=== PATIENT | male | born 1975 | race Caucasian/White ===

== ENCOUNTER 2020-03-22 12:17 | Emergency (ER) | payer SELFPAY ==
[~2020-03-22] VITALS: Ht 172.7 cm; Wt 71.7 kg
--- NOTE | 2020-03-22 12:18 | NUR ---
EFRAÍN ALS TAKEN TO BED 5
[2020-03-22] MEDS ORDERED: LORazepam 2 MG/ML VIAL ONE (12:20)
[2020-03-22] MEDS ORDERED: LORazepam 2 MG/ML VIAL IM ONE (12:20)
[2020-03-22] MEDS ORDERED: diphenhydrAMINE 50 MG/ML VIAL ONE (12:20)
[2020-03-22] MEDS ORDERED: diphenhydrAMINE 50 MG/ML VIAL IM ONE (12:20)
[2020-03-22] MEDS ORDERED: HALOPERIDOL IM 5 MG/ML VIAL IM ONE (12:20)
--- NOTE | 2020-03-22 12:20 | NUR ---
PT IS SHOUTING, YELLING, THRASHING IN GURNEY, SCREAMING "[employer]SE!" PT CONTINUOUSLY SHOUTING, SCREAMING "ROHIT! DADDY POKER!" OVER AND OVER. PT IS DIAPHORETIC, NO SHIRT ON, VIVIANE PANTS AND SHOES ON. PT UNCONTROLLABLE, IN 4 POINT RESTRAINTS AT THIS TIME. PT ARRIVED FROM EMS IN 4 POINT RESTRAINTS. OFFICER ANNI FROM [facility] ARRIVED TO ED PLACING PATIENT ON 5150 HOLD.
--- NOTE | 2020-03-22 12:35 | NUR ---
PT FOUND BY MARCELA JONAS LYING ON THE STREET S/P INDUCING METH AND BEING VERBALLY AND BEHAVIORLY AGGRESSIVE. PD PUT HIM ON 5150 HOLD DUE TO DANGER TO SELF AND OTHERS. PT PRESENTS WITH SEVERE DIAPHORESIS AND BEING VERBALLY AND BEHAVIORLY AGGRESSIVE AND COMBATIVE, VSS, BUT TACHYCARDIA.
[2020-03-22] MEDS ORDERED: NACL 0.9% 1,000 ML IV ONE (13:10)
[2020-03-22 13:26] LABS: BASOPHILS % (AUTO) 0.4 % (0.0-2.0); EOSINOPHILS # (AUTO) 0.1 K/uL (0-0.4); EOSINOPHILS % (AUTO) 0.6 % (0.0-4.0); HEMATOCRIT 44.2 % (36-52); HEMOGLOBIN 15.4 g/dL (12.0-18.0); LYMPHOCYTES # (AUTO) 0.9 K/uL (2.0-11.5); LYMPHOCYTES % (AUTO) 9.2 % (20.5-51.1); MEAN CORPUSCULAR HEMOGLOBIN 31 pg (27-31); MEAN CORPUSCULAR HGB CONC 35 g/dL (33-37); MEAN CORPUSCULAR VOLUME 90.4 fL (80-94); MONOCYTES # (AUTO) 0.5 K/uL (0.8-1.0); MONOCYTES % (AUTO) 5.3 % (1.7-9.3); NEUTROPHILS # (AUTO) 7.9 K/uL (1.8-7.7); NEUTROPHILS % (AUTO) 84.5 % (42.2-75.2); PLATELET COUNT (AUTO) 302 K/uL (140-450); RED BLOOD CELL COUNT(AUTO) 4.89 MIL/uL (4.20-6.10); RED CELL DISTRIBUTION WIDTH 13.6 % (11.6-13.7); WHITE BLOOD COUNT (AUTO) 9.3 K/uL (4.8-10.8)
[2020-03-22 13:45] LABS: BILIRUBIN,URINE 1+ (NEGATIVE); BLOOD, URINE 3+ (NEGATIVE); COLOR,URINE YELLOW (YELLOW); LEUKOCYTE ESTERASE ,URINE NEGATIVE (NEGATIVE); NITRITE, URINE NEGATIVE (NEGATIVE); UGLUCOSE NEGATIVE (NEGATIVE)
[2020-03-22 13:46] LABS: ALBUMIN 4.5 g/dL (3.4-5.0); ASPARTATE AMINOTRANSFERASE 21 U/L (15-37); CARBON DIOXIDE 15.4 mmol/L (21-32); CHLORIDE 104 mmol/L (98-107); CREATININE 1.8 mg/dL (0.6-1.3); GFR ARICAN-AMERICAN 53 mL/min (>90); GLUCOSE 97 mg/dL (74-106); POTASSIUM 3.4 mmol/L (3.5-5.1); SODIUM SERUM 143 mmol/L (136-145); TOTAL BILIRUBIN 0.6 mg/dL (0.0-1.0); UREA NITROGEN, BLOOD 10 mg/dL (7-18)
[2020-03-22 13:48] LABS: APPEARANCE,URINE SLIGHTLY HAZY (CLEAR)
[2020-03-22 13:51] LABS: RBC,URINE 11-20 (MOD) /HPF (0-5); WBC,URINE 0-5 /HPF (0-5)
[2020-03-22 13:54] LABS: URINE AMORPHOUS URATE 1+ /HPF (None Seen)
--- NOTE | 2020-03-22 13:57 | NUR ---
BILATERAL LOWER LEG RESTRAINTS REMOVED. PT TOLERATED WELL. ATTEMPTED TO REMOVE BILATERAL WRISTS RESTRAINTS AND PATIENT TRYING TO SWING ARMS, BEGINS YELLING AND TRYING TO GET OUT OF BED. BILATERAL WRIST RESTRAINTS LEFT IN PLACE AT THIS TIME. DR. HOLMAN AWARE.
[2020-03-22 14:00] LABS: ACETAMINOPHEN < 0.5 ug/ml (10-30); SALICYLATE < 2.8 mg/dL (2.8-20.0)
[2020-03-22 14:02] LABS: BARBITURATE, URINE NEG ng/ml (NEG <=200); BENZODIAZEPINE, URINE NEG ng/mL (NEG <=200); CANNABINOID, URINE NEG ng/mL (NEG <=50); COCAINE, URINE NEG ng/mL (NEG <=300); OPIATE, URINE NEG ng/mL (NEG <=2000); PHENCYCLIDINE SCREEN,URINE NEG ng/mL (NEG <=25)
--- NOTE | 2020-03-22 14:20 | NUR ---
RIGHT ARM RESTRAINTS REMOVED. PT IS SLEEPING QUITELY IN THE BED ON SUPINE POSITION, SKIN IS INTACT ON THE RESTRAINTED AREAS. IV ON RT AC IS IN PLACE. VSS. 1:1 SITTER IS AT BEDSIDE.
--- NOTE | 2020-03-22 14:20 | NUR ---
Note kayla in EDM - 03/22/20 at 1514 by BIB BILATERAL LOWER LEG RESTRAINTS REMOVED. PT IS SLEEPING QUITELY IN THE BED ON SUPINE POSITION, SKIN IS INTACT ON THE RESTRAINTED AREAS. IV ON RT AC IS IN PLACE. VSS. I:1 SITTER IS AT BEDSIDE.
--- NOTE | 2020-03-22 15:05 | NUR ---
ALL RESTRAINTS REMOVED. PT IS SLEEPING, QUIET. DR. HOLMAN AWARE.
[2020-03-22] MEDS ORDERED: OLANZapine 5 MG ODT SL ONE (17:25)
--- NOTE | 2020-03-22 17:45 | NUR ---
DINNER PROVIDED TO PT. PT IS EATING IN THE BED. PT IS CALM AND ABLE TO FOLLOW COMMANDS AT THIS TIME. PT STILL KEEPS SAYING :"[employer] HOUSE."
--- NOTE | 2020-03-22 18:24 | NUR ---
PT IS ON HOSPITAL GOWN/SOCKS AND SLEEPING QUITELY IN THE BED. VSS SHOWED ON THE MONITOR. WILL CONTINUE MONITORING PT'S VITAL SIGNS.
--- NOTE | 2020-03-22 19:11 | NUR ---
REPORT GAVE TO PT. TX OF CARE AT THIS TIME.
--- NOTE | 2020-03-22 19:12 | NUR ---
PT SLEEPING AT THIS TIME, REMAINS ON BEDSIDE MONITOR, VS WNL
--- NOTE | 2020-03-22 19:12 | NUR ---
RECEIVED REPORT LAURE GORDON RN.
--- NOTE | 2020-03-22 21:26 | NUR ---
PT REMAINS SLEEPING, RESPIRATIONS REGULAR EVEN AND UNLABORED. REMAINS ON BEDSIDE MONITOR AND Q 15 MIN CHECKS, PER PROTOCOL
--- NOTE | 2020-03-22 23:58 | NUR ---
PT REMAINS SLEEPING, RESPIRATIONS REGULAR EVEN AND UNLABORED. REMAINS ON BEDSIDE MONITOR AND Q 15 MIN CHECKS, PER PROTOCOL
--- NOTE | 2020-03-23 02:35 | NUR ---
PT REMAINS SLEEPING, RESPIRATIONS REGULAR EVEN AND UNLABORED. REMAINS ON BEDSIDE MONITOR AND Q 15 MIN CHECKS, PER PROTOCOL
--- NOTE | 2020-03-23 03:42 | NUR ---
TELEPSYCH INTIATED PER DR. CUBA
--- NOTE | 2020-03-23 04:14 | NUR ---
REPORT RECEIVED FROM GUILLE WELLS FOR CONTINUATION OF CARE.
--- NOTE | 2020-03-23 04:29 | NUR ---
TELEPSYCH DOCTOR SPEAKING WITH PATIENT VIA REMOTE COMMUNICATION
[2020-03-23 05:30] VITALS: BP 114/70
--- NOTE | 2020-03-23 05:31 | NUR ---
Patient discharged with v/s stable. Written and verbal after care instructions given and explained. Patient verbalized understanding. Ambulatory with steady gait. All questions addressed prior to discharge. Advised to follow up with PMD.
--- NOTE | 2020-03-25 08:35 | NUR ---
Received negative covid results from lab.
== END 2020-03-23 05:32 | disposition home or self-care (01) ==
LOC: MED 12:17
DX: F29 Unspecified psychosis not due to a substance or known physiological condition (principal); F15.10 Other stimulant abuse, uncomplicated
CPT/HCPCS: 36415; 80053; 80305; 81001; 85025; 87426; 93005; 96360; 96372; 99291; G0480; G0482; J1200; J1630; J2060; J7030; U0003